=== PATIENT | male | born 1990 | race Caucasian/White ===

== ENCOUNTER 2020-12-10 11:07 | Inpatient (IN) | payer OTHER, SELFPAY ==
[2020-12-10] VITALS (25 sets, daily range): BP systolic 113–151; BP diastolic 49–109; PULSE 82–129; RESP 11–30; TEMP 36.3–36.8; O2SAT 97–100
--- NOTE | ~2020-12-10 | XR_ITS ---
EXAMINATION: XR chest 1V portable DATE: 12/10/2020 11:45 INDICATION: Weakness. TECHNIQUE: A single frontal view of the chest was obtained. COMPARISON: None. FINDINGS: The chest demonstrates clear lungs without pneumonia, pleural effusion, or pneumothorax. Th e heart size is normal. IMPRESSION: 1. No acute cardiopulmonary disease. Reviewed, dictated and finalized at location A. [employer]
--- NOTE | ~2020-12-10 | CT_ITS ---
EXAMINATION: CT abdomen pelvis w con DATE: 12/10/2020 13:26 INDICATION: Nausea. Diarrhea. TECHNIQUE: Computed tomography (CT) of the abdomen and pelvis was performed with 100 mL Omnipaque 350 intravenous contrast. Automated exposure control and iterative reconstruction technique were employe d. The dose-length product was 246.02 mGy-cm. COMPARISON: None. FINDINGS: The visualized portions of the lung bases demonstrate minimal atelectasis. No pleural effus ion. The heart size is normal. No pericardial effusion. The liver, gallbladder, spleen, and adrenal g lands are normal. There is a punctate calcification in the pancreas, likely chronic pancreatitis. The re is cortical thinning of the kidneys. There are cysts in the kidneys measuring up to 9 mm on the le ft. The duodenum does not cross the midline to the left, consistent bowel malrotation. There is liqui d stool in the colon suggestive of diarrhea. There are no dilated loops of bowel. The appendix is nor mal. There is a portacaval shunt from the splenic vein to the left renal vein. There is severe stenos is of celiac axis secondary to median arcuate ligament compression. Superior mesenteric artery is nor mal. There are no pathologically enlarged lymph nodes. There is no free intraperitoneal fluid. There is asymmetric fat in left inguinal canal that may be a hernia. The bones are unremarkable. IMPRESSION: 1. Portacaval shunt, consistent with portal venous hypertension. Reviewed, dictated and finalized at location A. [employer] TECH[employer]IC[employer]
--- NOTE | ~2020-12-10 | US_ITS ---
EXAMINATION: US abdomen limited DATE: 12/11/2020 07:31 INDICATION: Abnormal liver function tests. TECHNIQUE: Multiple grayscale and Doppler ultrasound images of the abdomen were obtained. COMPARISON: CT abdomen and pelvis 12/10/2020 FINDINGS: The visualized portions of the head and body of the pancreas are normal. There is diffuse h epatic steatosis. There is normal flow in main portal vein. The gallbladder is normal in size. No gal lstones or gallbladder wall thickening. There was no sonographic Barney sign. The common duct is norm al and measures 4 mm. IMPRESSION: 1. Diffuse hepatic steatosis. Reviewed, dictated and finalized at location A. [employer]
--- NOTE | 2020-12-10 11:13 | ED.GENADULT ---
HPI - General Adult General Chief complaint: Unspecified Stated complaint: high blood sugar History of Present Illness HPI narrative: 30 yo male w/ h/o DM brought in by EMS to the ED for high blood sugar. His friend reportedly dropped him off at a truck stop. He reports that he was having abdominal pain and vomiting. He checked his glucose and the machine read high. He says that he has not been feeling well for several days. He says that it feels like he is having heart attacks in his abdomen. He was not able to tell me if his blood sugar had been elevated before today. He reports frequent diarrhea for months. No cough, congestion, fever. Related Data Home Medications Medication Instructions Recorded Confirmed Lantus U-100 Insulin 55 units SUBCUT HS 12/10/20 12/10/20 insulin lispro [Humalog U-100 10 unit SUBCUT TIDWM 12/10/20 12/10/20 Insulin] metformin 500 mg PO BID 12/10/20 12/10/20 Allergies Allergy/AdvReac Type Severity Reaction Status Date / Time No Known Allergies Allergy Verified 12/10/20 11:20 Review of Systems Review of Systems: All systems reviewed & are unremarkable except as noted in HPI and below Constitutional: Constitutional: Denies fever(s) and Reports weakness Eyes: Eyes: Reports no additional eye complaints ENT: Reports system reviewed and no additional complaints, except as documented Cardiovascular: Cardiovascular: Denies chest pain Respiratory: Respiratory: Denies dyspnea Gastrointestinal: Gastrointestinal: Reports abdominal pain, Reports diarrhea, Reports nausea and Reports vomiting Genitourinary: Genitourinary: Denies hematuria and Denies dysuria Neurologic: Reports dizziness and Reports weakness PMFSH Past Medical History Medical History (Updated 12/12/20 @ 18:09 by Hari Linn MD) Type 1 diabetes mellitus Surgical History Surgical History (Updated 12/10/20 @ 20:15 by Dasia Aezvedo PA-C) History of elbow surgery ORIF left elbow fracture. History of tonsillectomy Family History Family History (Updated 12/10/20 @ 20:15 by Dasia Azevedo PA-C) Other Heart disease Social History Social History (Updated 12/10/20 @ 20:29 by Dasia Azevedo PA-C) Social History: The patient tells me that he is homeless as of today. He denies tobacco and illicit substance use. No alcohol in 8 months. He designates his friend Phani Bhatti as his surrogate decision maker. He wishes to be a full code. Spiritual care concerns: No Exam Const: General: no acute distress and ill appearing Nutritional Appearance: thin HENMT: Head: normal to inspection Neck: Neck: normal visual inspection Resp: Effort & Inspection: normal respiratory effort Auscultation: clear to auscultation bilaterally Cardio: Rate: tachycardic Rhythm: regular rhythm GI: GI Palp: Yes abdominal tenderness (diffuse), Yes Soft to palpation and No Guarding due to palpation present (GI) Skin: General skin exam: pallor Neuro: General: patient oriented x3 and CN's II-XI intact bilaterally Cranial nerves: Yes CN's II-XII intact bilaterally Speech: normal speech Motor exam (neuro): 5/5 motor strength present throughout Extrem: General: normal to inspection Course Vital Signs Vital signs: Vital Signs Temperature 36.8 C 12/10/20 11:11 Pulse Rate 100 12/10/20 11:11 Respiratory Rate 18 12/10/20 11:11 Blood Pressure 124/97 H 12/10/20 11:11 Pulse Oximetry 99 12/10/20 11:11 Temperature 36.5 C 12/12/20 14:00 Pulse Rate 104 H 12/12/20 14:00 Respiratory Rate 16 12/12/20 14:00 Blood Pressure 134/89 12/12/20 14:00 Pulse Oximetry 100 12/12/20 14:00 Medical Decision Making MDM Narrative Medical decision making narrative: He has multiple significnat electrolyte abnormalities in addition to his hyperglycemia that will require admission for monitoring and repeat lab work. Differential Diagnosis Differential Diagnosis: DKA, hyperglycemia, hypokalemia
--- NOTE | 2020-12-10 11:25 | PC.NURSE ---
Attempts x3 for IV unsuccessful per EMT student and NIKOLAI Villalta.
[2020-12-10 11:46] LABS: Glucose Point of Care > 500 (65-105)
[2020-12-10 11:46] LABS: Basophils Absolute Auto 0.1 K/mm3 (0.0-0.1); Basophils Percent Auto 0.9 % (0.2-1.2); Eosinophils Absolute Auto 0.2 K/mm3 (0-0.3); Eosinophils Percent Auto 2.7 % (0-4.4); Hematocrit 35.5 % (42.0-52.0); Hemoglobin 13.3 g/dL (14.0-18.0); Immature Granulocyte Absolute 0.02 K/mm3 (0.00-0.031); Immature Granulocyte Percent A 0.3 % (0-0.5); Lymphocytes Percent Auto 31.2 % (18.3-44.2); Mean Corpuscular HGB Conc 37.5 g/dl (32-36); Mean Corpuscular Hemoglobin 28.2 pg (26-34); Mean Corpuscular Volume 75.4 fl (80-100); Mean Platelet Volume 10.4 fl (7.4-10.4); Monocytes Absolute Auto 0.4 K/mm3 (0.1-0.6); Monocytes Percent Auto 6.1 % (2.6-8.5); Neutrophils Percent Auto 58.8 % (45.5-73.1); Platelet Count Result 187 k/mm3 (150-375); Red Blood Count 4.71 M/mm3 (4.6-6.20); Red Cell Distribution Width 12.7 % (11.5-14.5); White Blood Count 6.7 K/mm3 (4.5-10.0)
[2020-12-10] MEDS: SODIUM CHLORIDE 0.9% IV 2,000 ML 999 ML IV CONT (11:46)
[2020-12-10 12:07] LABS: Alanine Aminotransferase 232 U/L (4-50); Albumin Level 3.9 g/dL (3.5-5.1); Alkaline Phosphatase 567 U/L (38-126); Anion Gap 9 mmol/L (8-16); Aspartate Amino Transferase 316 U/L (17-59); Bilirubin,Total 1.3 mg/dL (0.2-1.3); Blood Urea Nitrogen 32 mg/dL (9-20); Calcium 9.9 mg/dL (8.4-10.2); Carbon Dioxide 31 mmol/L (22-30); Chloride 88 mmol/L (98-107); Estimated CRCL calculation 84 ml/min; Estimated Glomerular Filt Rate > 60; Glucose 613 mg/dL (75-110); Potassium 2.9 mmol/L (3.4-5.0); Sodium 128 mmol/L (137-145)
[2020-12-10] MEDS: MAGNESIUM SULF 2 GM/WATER 50ML 2 GM/50 ML BAG IVPB ×2 (12:46→22:42)
[2020-12-10] MEDS: SODIUM CHLORIDE 0.9% IV 1,000 ML 999 ML IV CONT (12:47)
--- NOTE | 2020-12-10 12:52 | PC.NURSE ---
Pt unable to void and is refusing straight cath. Up to bedside commode for BM.
--- NOTE | 2020-12-10 13:13 | PC.NURSE ---
Pt had bm and urinated in the commode. States wasn't aware we needed to save the urine.
--- NOTE | 2020-12-10 13:18 | PC.NURSE ---
Pt to CT via stretcher.
--- NOTE | 2020-12-10 14:03 | PC.NURSE ---
Pt crying out, states that peripheral IV is hurting. Appears to be WNL. Explained that potassium can sometimes burn. Rate decreased to 75mg/hr. Cool washcloth given to area.
[2020-12-10 14:07] LABS: Glucose Point of Care 445 (65-105)
--- NOTE | 2020-12-10 14:10 | PC.NURSE ---
Pt up to bedside commode to have stool. Reminded patient that need urine.
--- NOTE | 2020-12-10 14:30 | PM.IMHP ---
H&P: HPI History of Present Illness Date/Time: 12/10/20 14:30 <Dasia Azevedo PA-C - Last Filed: 12/10/20 20:53> Chief Complaint: Nausea, dizziness, hyperglycemia. <Dasia Azevedo PA-C - Last Filed: 12/10/20 20:53> Narrative: This is a 30-year-old male with type 1 diabetes mellitus presented to the emergency department earlier today via EMS from a local truck stop with complaints of nausea, dizziness, and hyperglycemia. He does not provide a good history due to lack of cooperation and instead perseverates on his irritation with his IV and monitoring accoutrements. From what I can gather, he went to eat at [employer] with his friends and felt sick not long thereafter with diffuse abdominal pain, nausea, and dizziness. He also mentions having greater than 10 episodes of diarrhea a day for quite some time. For some reason his friends dropped him off at a local truck instead of taking him to the hospital and he called 911 as he had no where to go ?because I guess I am homeless now.? His glucose was greater than 500 on arrival to the emergency department and I am not certain how compliant he is with his insulin as he could not give me a straight answer whether or not he has been taking his medication. 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 It sounds like he frequently has abdominal pain although it is not necessarily related to food. Endoscopy in 2018 was unremarkable although he has never had a colonoscopy. He denies fever, chills, and sweats. No recent travel, sick contacts, or recent antibiotic use. He denies IV drug use, new tattoos, and concerns for hepatitis exposure. No history of cirrhosis. He has not consumed alcohol for 8 months. No jaundice or pruritus. He has not had any vomiting and denies melena and hematochezia. <Dasia Azevedo PA-C - Last Filed: 12/10/20 20:53> Review of Systems Review of Systems: Narrative: Twelve systems are reviewed with pertinent positives and negatives as per HPI. He denies headache. He thinks he has lost some weight over the year but nothing significant. No fever, chills, or sweats. No sinus congestion, rhinorrhea, otalgia, or odynophagia. He denies cough and shortness of breath. No chest pain, pleuritic pain, palpitations, or feelings of racing heart. He denies dysuria. Endorses polydipsia but no blurry vision or polyuria. Except as documented, all other systems were reviewed and are negative. <Dasia Azevedo PA-C - Last Filed: 12/10/20 20:53> [facility] Past Medical History Medical History: Medical History (Updated 12/10/20 @ 20:39 by Dasia Azevedo PA-C) Type 1 diabetes mellitus <Dasia Azevedo PA-C - Last Filed: 12/10/20 20:53> Surgical History Surgical History: Surgical History (Updated 12/10/20 @ 20:15 by Dasia Azevedo PA-C) History of elbow surgery ORIF left elbow fracture. History of tonsillectomy <Dasia Azevedo PA-C - Last Filed: 12/10/20 20:53> Family History Family History: Family History (Updated 12/10/20 @ 20:15 by Dasia Azevedo PA-C) Other Heart disease <Dasia Azevedo PA-C - Last Filed: 12/10/20 20:53> Social History Social History: Social History (Updated 12/10/20 @ 20:29 by Dasia Azevedo PA-C) Social History: The patient tells me that he is homeless as of today. He denies tobacco and illicit substance use. No alcohol in 8 months. He designates his friend Phani Bhatti as his surrogate decision maker. He wishes to be a full code. Spiritual care concerns: No <Dasia Azevedo PA-C - Last Filed: 12/10/20 20:53> Meds Home Medications and Allergies Home medications: Home Medications Medication Instructions Record
[2020-12-10 14:47] LABS: Add Urine Microscopic? YES; Appearance Urine Clear (Clear); Bilirubin Urine Negative (Negative); Blood Urine Negative (Negative); Color Urine Colorless (Yellow); Glucose Urine UA 3+ mg/dL (Negative); Ketones Urine Negative (Negative); Leukocyte Esterase Ur Negative LEU/UL (Negative); Nitrate Urine Negative (Negative); Protein Urine Negative (Negative); Specific Grav Ur 1.016 (1.001-1.035); Urobilinogen Urine Negative mg/dL (<2.0)
--- NOTE | 2020-12-10 14:50 | PC.NURSE ---
GALO Salazar with hospitalist group, at bedside for exam.
--- NOTE | 2020-12-10 15:04 | PC.NURSE ---
Awaiting bed assignment. Pt resting on stretcher. No longer c/o pain at IV start site.
[2020-12-10 15:08] LABS: INR 0.9; Prothrombin Time 12.7 Seconds (11.1-14.7)
[2020-12-10 15:09] LABS: Partial Thromboplastin Time 29.2 SECONDS (22.3-36.8)
[2020-12-10 15:43] LABS: Hepatitis B Surface Antigen Negative (Negative)
[2020-12-10 15:49] LABS: HAV RESULT Negative (Negative); Hepatitis B Core IgM Result Negative (Negative)
[2020-12-10 16:01] LABS: Glucose Point of Care 460 (65-105)
[2020-12-10 16:01] LABS: Hepatitis C Virus Antibody Negative (Negative)
[2020-12-10] MEDS: INSULIN HUMAN REGULAR (*BKC) 100 UNITS/ML 7 UNITS IV PUSH (16:24)
--- NOTE | 2020-12-10 17:16 | ADMGEN ---
This patient, Salvador Dominguez, was admitted to IMU Room 203-01 at 1711 on 12/10/2020. Patient/family oriented to hospital policies and general routines including ID bracelet, bed and alarms, visiting hours, pain management, procedures, bathroom and other care routines, personal items, smoking policy, room service/diet, and visiting hours. Information on how to activate the Rapid Response Team has been discussed. Patient/Family are encouraged to report perceived risks to care and to ask questions if they do not understand what they are told or what they should do.
[2020-12-10 21:07] LABS: Glucose Point of Care 287 (65-105)
[2020-12-10] MEDS: INSULIN ASPART (*BKC) 100 UNITS/ML SUB-Q (21:23)
[2020-12-10 21:36] LABS: Hemoglobin A1C 12.7 % (<5.7)
[2020-12-10 21:43] LABS: Iron 73 ug/dL (49-181)
[2020-12-10 21:50] LABS: Anion Gap 6 mmol/L (8-16); Blood Urea Nitrogen 23 mg/dL (9-20); CRP < 0.5 mg/dL (<1.0); Calcium 9.5 mg/dL (8.4-10.2); Carbon Dioxide 26 mmol/L (22-30); Chloride 102 mmol/L (98-107); Estimated CRCL calculation 100 ml/min; Estimated Glomerular Filt Rate > 60; Glucose 283 mg/dL (75-110); Lactate Dehydrogenase 829 U/L (313-618); Magnesium 1.2 mg/dL (1.6-2.3); Potassium 3.7 mmol/L (3.4-5.0); Sodium 134 mmol/L (137-145)
[2020-12-10 21:53] LABS: Percent Iron Saturation 20 % (20-50)
[2020-12-10 22:15] LABS: Thyroid Stimulating Hormone Reflex 0.509 uIU/mL (0.465-4.68)
[2020-12-10 22:53] LABS: Folic Acid > 20.0 ng/mL (2.76->20)
[2020-12-10] MEDS: metroNIDAZOLE 500 MG/ISO 100ML 500 MG/100 ML BAG 100 MG IVPB (23:43)
[2020-12-10] MEDS: INSULIN GLARGINE (*BKC) 100 UNITS/ML 55 UNITS SUB-Q (23:47)
[2020-12-11] VITALS (9 sets, daily range): BP systolic 103–126; BP diastolic 56–86; PULSE 80–102; RESP 16–21; TEMP 36–37.2; O2SAT 98–100
--- NOTE | 2020-12-11 00:15 | PC.NURSE ---
Patient has been unwilling to give us a urine sample for testing. Unable to send urine drug screen at this time.
[2020-12-11 01:29] LABS: IFOB Positive Control Positive; Immunochemical Fecal Occult Bl Positive (N)
[2020-12-11 04:53] LABS: Amphetamine Screen Urine Negative (Negative); Barbiturate Screen Urine Negative (Negative); Benzodiazepines Screen Urine Negative (Negative); Cannabinoid Screen Urine Negative (Negative); Cocaine Screen Urine Negative (Negative); Methadone Screen Urine Negative (Negative); Opiate Screen Urine Negative (Negative); Phencyclidine Screen Urine Negative (Negative)
[2020-12-11] MEDS: metroNIDAZOLE 500 MG/ISO 100ML 500 MG/100 ML BAG 100 MG IVPB ×3 (06:07→17:42)
[2020-12-11 06:54] LABS: Hematocrit 37.1 % (42.0-52.0); Hemoglobin 13.3 g/dL (14.0-18.0); Mean Corpuscular HGB Conc 35.8 g/dl (32-36); Mean Corpuscular Hemoglobin 27.9 pg (26-34); Mean Corpuscular Volume 77.9 fl (80-100); Mean Platelet Volume 10.1 fl (7.4-10.4); Platelet Count Result 185 k/mm3 (150-375); Red Blood Count 4.76 M/mm3 (4.6-6.20); Red Cell Distribution Width 13.2 % (11.5-14.5); White Blood Count 7.9 K/mm3 (4.5-10.0)
[2020-12-11 07:07] LABS: Glucose Point of Care 68 (65-105)
[2020-12-11 07:15] LABS: Alanine Aminotransferase 238 U/L (4-50); Albumin Level 3.5 g/dL (3.5-5.1); Alkaline Phosphatase 456 U/L (38-126); Anion Gap 4 mmol/L (8-16); Aspartate Amino Transferase 231 U/L (17-59); Bilirubin,Total 1.2 mg/dL (0.2-1.3); Blood Urea Nitrogen 19 mg/dL (9-20); Calcium 8.8 mg/dL (8.4-10.2); Carbon Dioxide 31 mmol/L (22-30); Chloride 102 mmol/L (98-107); Estimated CRCL calculation 82 ml/min; Estimated Glomerular Filt Rate > 60; Glucose 81 mg/dL (75-110); Magnesium 1.4 mg/dL (1.6-2.3); Potassium 2.6 mmol/L (3.4-5.0); Sodium 137 mmol/L (137-145)
[2020-12-11] MEDS: GLUCOSE ORAL GEL 15 GM OF GLUCSE IN 37.5 GM TUBE PO (07:15)
[2020-12-11] MEDS: MAGNESIUM SULF 1 GM/D5W 100 ML 1 GM/100 ML BAG IVPB (08:28)
[2020-12-11] MEDS: POTASSIUM CHLORIDE 20 MEQ TABLET 40 MEQ PO (08:35)
[2020-12-11 11:54] LABS: Glucose Point of Care 237 (65-105)
--- NOTE | 2020-12-11 13:29 | PM.IMPN ---
Progress Note: A&P Assessment and Plan (1) Diarrhea: Code(s): R19.7 - Diarrhea, unspecified Status: Acute Assessment and Plan: Chronic diarrhea for several months Suspect secondary to poorly controlled Diabetes Supportive care (2) Abnormal CT of the abdomen: Code(s): R93.5 - Abnormal findings on diagnostic imaging of other abdominal regions, including retroperitoneum Status: Acute Assessment and Plan: Presence of portocava shunt (3) Elevated LFTs: Code(s): R79.89 - Other specified abnormal findings of blood chemistry Status: Acute Assessment and Plan: Likely multifactorial ETOH abuse and poor oral intake (4) Dehydration: Code(s): E86.0 - Dehydration Status: Acute Assessment and Plan: Receiving iv fluids (5) Hypomagnesemia: Code(s): E83.42 - Hypomagnesemia Status: Acute Assessment and Plan: Magnesium sulfate rider Continue to monitor (6) Hypokalemia: Code(s): E87.6 - Hypokalemia Status: Acute Assessment and Plan: Potasium chloride rider Continue to monitor (7) Hyponatremia: Code(s): E87.1 - Hypo-osmolality and hyponatremia Status: Acute Assessment and Plan: IV fluids Will continue to monitor (8) Microcytic anemia: Code(s): D50.9 - Iron deficiency anemia, unspecified Status: Acute Assessment and Plan: Iron deficiency anemia Likely poor oral intake GI loses as well Diarrhea for several months. (9) Type 1 diabetes mellitus with hyperglycemia: Code(s): E10.65 - Type 1 diabetes mellitus with hyperglycemia Status: Acute Assessment and Plan: Poorly controlled Accuchecks ACHS ADA diet ISS as needed AIC is 12.7 Subjective Date/time seen: 12/11/20 13:29 I feel ok Review of Systems Review of Systems: Narrative: diarrhea for several months now Constitutional: Comments: no fevers, no rigors, no chills ENT: Comments: no nasal congestion. Cardiovascular: Comments: no chest pain, no leg swelling, no orhtopnea. Respiratory: Comments: no sob, no cough, no sputum production. Gastrointestinal: Comments: diarrhea for several months. Musculoskeletal: Comments: no joint pain. Integumentary/Breasts: Comments: no rashes Neurologic: Comments: no sensory motor deficit. Exam Narrative: Exam Narrative: Lying gin bed Const: General: comfortable, no acute distress, alert, awake and Physically active Nutritional Appearance: thin Orientation/consciousness: patient oriented x3 Limitations: no limitations HENMT: Head: normocephalic Ears: hearing grossly normal bilaterally General nose exam: Normal external nose present Face and sinus: normal facial exam Eyes: General: appearance normal, both eyes and all related structures Pupils: Equal, round and reactive pupils present EOM: EOMs intact bilaterally Neck: Neck: no lymphadenopathy, supple and no JVD Resp: Effort & Inspection: able to speak in complete sentences Auscultation: clear to auscultation bilaterally Cardio: Rate: regular rate Rhythm: regular rhythm GI: GI Palp: Yes Soft to palpation and Yes No hepatosplenomegaly present Skin: Rashes: no rashes Neuro: General: patient oriented x3 and CN's II-XI intact bilaterally Cranial nerves: Yes CN's II-XII intact bilaterally and Yes Equal, round and reactive pupils present Cognition (Neuro): normal cognition Motor exam (neuro): 5/5 motor strength present throughout Sensory Exam: normal sensation Extrem: General: no pedal edema Objective Data Vital Signs Vital Signs: Vital Signs - 24 hr 12/10/20 14:07 12/10/20 14:16 12/10/20 14:31 Temperature Pulse Rate 129 H 104 H 88 Respiratory Rate 29 H 30 H 14 Blood Pressure 151/49 H 135/103 H 125/93 H Pulse Oximetry 99 98 12/10/20 14:46 12/10/20 15:01 12/10/20 15:16 Temperature Pulse Rate 92 91 94 Respiratory Rate 13 16 17 Blood Pressure 130/98 H 121/90 119/90
[2020-12-11] MEDS: INSULIN ASPART (*BKC) 100 UNITS/ML 10 UNITS SUB-Q (13:50)
[2020-12-11] MEDS: INSULIN ASPART (*BKC) 100 UNITS/ML SUB-Q (13:50)
--- NOTE | 2020-12-11 14:31 | PC.NURSE ---
This patient, Salvador Dominguez, was transferred to [facility] [place] on 12/11/20 at 1425. Personal belongings sent with patient. Report given to Yelena MENCHACA. Appropriate documentation sent with patient.
[2020-12-11 15:17] LABS: Magnesium 1.5 mg/dL (1.6-2.3); Potassium 3.1 mmol/L (3.4-5.0)
[2020-12-11 16:32] LABS: Glucose Point of Care 55 (65-105)
[2020-12-11 17:22] LABS: Glucose Point of Care 67 (65-105)
--- NOTE | 2020-12-11 17:25 | PM.IMPN ---
Progress Note: A&P Assessment and Plan (1) Diarrhea: Code(s): R19.7 - Diarrhea, unspecified Status: Acute Assessment and Plan: Likely secondary to uncontrolled T1DM Supportive care Needs better control of his diabetes (2) Abnormal CT of the abdomen: Code(s): R93.5 - Abnormal findings on diagnostic imaging of other abdominal regions, including retroperitoneum Status: Acute Assessment and Plan: Rosa caval shunt present (3) Elevated LFTs: Code(s): R79.89 - Other specified abnormal findings of blood chemistry Status: Acute Assessment and Plan: Likely to multifactorial reasons Steatosis hepatica ETOH abuse Poor oral intake CT abd/pel reviewed US liver reviewed (4) Dehydration: Code(s): E86.0 - Dehydration Status: Acute Assessment and Plan: Receiving fluids (5) Hypomagnesemia: Code(s): E83.42 - Hypomagnesemia Status: Acute Assessment and Plan: Replace as needed (6) Hypokalemia: Code(s): E87.6 - Hypokalemia Status: Acute Assessment and Plan: Replace as needed (7) Hyponatremia: Code(s): E87.1 - Hypo-osmolality and hyponatremia Status: Acute Assessment and Plan: Receiving NS Continue to monitor (8) Microcytic anemia: Code(s): D50.9 - Iron deficiency anemia, unspecified Status: Acute Assessment and Plan: Likely due to GI loses (9) Type 1 diabetes mellitus with hyperglycemia: Code(s): E10.65 - Type 1 diabetes mellitus with hyperglycemia Status: Acute Assessment and Plan: Uncontrolled A1C is 12.7 ISS as needed ADA diet Subjective Date/time seen: 12/11/20 17:25 Patient states no complains at this time. Review of Systems Review of Systems: Narrative: Patient is a poor historian. Constitutional: Comments: no fevers, no rigors, no chills. ENT: Comments: no nasal congestion. Cardiovascular: Comments: no chest pain, no leg swelling, no pnd, no orthopnea. Respiratory: Comments: no sob, no cough, no sputum production Gastrointestinal: Comments: diarrhea for several months Musculoskeletal: Comments: no joint pain. Integumentary/Breasts: Comments: no rashes Neurologic: Comments: no sensory motor deficit. Exam Narrative: Exam Narrative: Alessandro ramirez bed Const: General: comfortable, no acute distress, alert, awake and Physically active Nutritional Appearance: thin Orientation/consciousness: patient oriented x3 HENMT: Head: normal to inspection and normocephalic Ears: hearing grossly normal bilaterally General nose exam: Normal external nose present Face and sinus: normal facial exam Mouth: Yes Normal oral and palatal mucosa present Eyes: Pupils: Equal, round and reactive pupils present EOM: EOMs intact bilaterally Neck: Neck: no lymphadenopathy, supple and no JVD Resp: Effort & Inspection: able to speak in complete sentences Auscultation: clear to auscultation bilaterally Cardio: Jugular venous distension: no JVD Rate: regular rate Rhythm: regular rhythm GI: GI Palp: Yes Soft to palpation and Yes No hepatosplenomegaly present Skin: Rashes: no rashes Wounds: no wounds Neuro: General: patient oriented x3 and CN's II-XI intact bilaterally Cranial nerves: Yes CN's II-XII intact bilaterally and Yes Equal, round and reactive pupils present Cognition (Neuro): normal cognition Speech: normal speech Gait exam (Neuro): Normal gait present Motor exam (neuro): 5/5 motor strength present throughout Extrem: General: no pedal edema Objective Data Vital Signs Vital Signs: Vital Signs - 24 hr 12/10/20 17:44 12/10/20 18:00 12/10/20 19:55 Temperature 97.3 F L Pulse Rate 90 93 97 Respiratory Rate 16 16 Blood Pressure 138/85 Pulse Oximetry 98 100 12/10/20 20:00 12/10/20 22:00 12/11/20 00:00 Temperature 97 F L Pulse Rate 82 105 H 86 Respiratory Rate 16 Blood Pressure 103/56 L Pulse Oximetry 100 99
--- NOTE | 2020-12-11 18:11 | PC.NURSE ---
This patient, Salvador Dominguez, was received from IMU on 12/11/20 at 1400. Patient/family oriented to unit policies and routines
[2020-12-11 18:35] LABS: Glucose Point of Care 155 (65-105)
[2020-12-11] MEDS: INSULIN GLARGINE (*BKC) 100 UNITS/ML 25 UNITS SUB-Q (20:40)
[2020-12-11 21:04] LABS: Glucose Point of Care 436 (65-105)
[2020-12-12] MEDS: metroNIDAZOLE 500 MG/ISO 100ML 500 MG/100 ML BAG 100 MG IVPB ×3 (00:30→11:26)
[2020-12-12 06:02] VITALS: BP 126/76; PULSE 86; RESP 16; TEMP 37.1; O2SAT 100
[2020-12-12 07:38] LABS: Glucose Point of Care 253 (65-105)
[2020-12-12 07:59] LABS: Glucose Point of Care 158 (65-105)
[2020-12-12] MEDS: INSULIN ASPART (*BKC) 100 UNITS/ML 10 UNITS SUB-Q ×2 (08:09→11:24)
[2020-12-12 10:54] LABS: Glucose Point of Care 148 (65-105)
[2020-12-12 14:00] VITALS: BP 134/89; PULSE 104; RESP 16; TEMP 36.5; O2SAT 100
--- NOTE | 2020-12-12 14:20 | PM.DS ---
DS: Admitting Diagnosis Admitting Diagnosis Admitting Diagnosis: N/V/Diarrhea. DS: Discharge Diagnosis Discharge Diagnosis (1) Diarrhea: Code(s): R19.7 - Diarrhea, unspecified Status: Acute Assessment and Plan: Likely secondary to uncontrolled sugars. (2) Elevated LFTs: Code(s): R79.89 - Other specified abnormal findings of blood chemistry Status: Acute Assessment and Plan: Likely secondary to fatty liver due to uncontrolled blood sugars (3) Dehydration: Code(s): E86.0 - Dehydration Status: Acute Assessment and Plan: Resolved (4) Hypomagnesemia: Code(s): E83.42 - Hypomagnesemia Status: Acute Assessment and Plan: Replaced (5) Hypokalemia: Code(s): E87.6 - Hypokalemia Status: Acute Assessment and Plan: Replaced (6) Hyponatremia: Code(s): E87.1 - Hypo-osmolality and hyponatremia Status: Acute Assessment and Plan: Resolved (7) Microcytic anemia: Code(s): D50.9 - Iron deficiency anemia, unspecified Status: Acute Assessment and Plan: Follow up i the outpatient setting (8) Type 1 diabetes mellitus with hyperglycemia: Code(s): E10.65 - Type 1 diabetes mellitus with hyperglycemia Status: Acute Assessment and Plan: Continue Insulin Follow up in the outpatient setting DS: Summary Hospital Course Reason for hospitalization: N/V/Diarrhea. Hospital Course: This is a 30-year-old male with type 1 diabetes mellitus presented to the emergency department via EMS from a local truck stop with complaints of nausea, dizziness, and high blood sugar. He does not provide a good history due to lack of cooperation. Apparently he went to eat at [employer] with his friends and felt sick not long thereafter with diffuse abdominal pain, nausea, and dizziness. He also mentions having greater than 10 episodes of diarrhea a day for quite some time. For some reason his friends dropped him off at a local truck instead of taking him to the hospital and he called 911 as he had no where to go ?because I guess I am homeless now.? His glucose was greater than 500 on arrival to the emergency room. 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 It sounds like he frequently has abdominal pain although it is not necessarily related to food. Endoscopy in 2018 was unremarkable although he has never had a colonoscopy. He denies fever, chills, and sweats. No recent travel, sick contacts, or recent antibiotic use. He denies IV drug use, new tattoos, and concerns for hepatitis exposure. No history of cirrhosis. He has not consumed alcohol for 8 months. No jaundice or pruritus. He has not had any vomiting and denies melena and hematochezia. Patient was admitted to regular medical floor for hydration and monitoring in he morning he insisted to be released and he was discharged home. No consults were requested. No procedures. Time Spent with Patient Time attestation: Total time spent providing and/or coordinating discharge services: DS: Data Data Completed and Pending Labs on day of discharge: Labs from last 24 hours 12/12/20 12/12/20 12/12/20 10:52 07:57 00:41 Potassium POC Capillary Glucose 148 H 158 H 253 H Magnesium 12/11/20 12/11/20 12/11/20 20:18 17:52 17:10 Potassium POC Capillary Glucose 436 H 155 H 67 Magnesium 12/11/20 12/11/20 16:30 15:01 Potassium 3.1 L POC Capillary Glucose 55 L* Magnesium 1.5 L EXAMINATION: XR chest 1V portable DATE: 12/10/2020 11:45 INDICATION: Weakness. TECHNIQUE: A single frontal view of the chest was obtained. COMPARISON: None. FINDINGS: The chest demonstrates clear lungs with
[2020-12-14 21:28] LABS: Haptoglobin 75 mg/dL (43-212)
== END 2020-12-12 14:57 | disposition home or self-care (01) | DRG 420 ==
LOC: ANHED 14:56 → ANHIMU 16:50 → ANH2MED 12-11 14:25
PROVIDERS: Physician Assistant; Admitting Provider Internal Medicine; Emergency Provider Emergency Medicine; PCP Family Medicine; Visit Provider Internal Medicine
DX: E10.65 Type 1 diabetes mellitus with hyperglycemia (principal); E87.1 Hypo-osmolality and hyponatremia; E86.0 Dehydration; E87.6 Hypokalemia; E83.42 Hypomagnesemia; D50.9 Iron deficiency anemia, unspecified
CPT/HCPCS: 36415; 71045; 74177; 76705; 80048; 80053; 80074; 80307; 81001; 82010; 82274; 82607; 82728; 82746; 82948; 83010; 83036; 83540; 83550; 83615; 83735; 84100; 84132; 84443; 85025; 85027; 85610; 85730; 86140; 87015; 87045; 87046; 87269; 87272; 87324; 87427; 96361; 96365; 96366; 96367; 96375; 99291; A9270; G0378; G0379; J1815; J3475; J3480; J7030; Q9967